=== PATIENT | female | born 1990 ===

== ENCOUNTER 2017-06-03 20:09 | Emergency (ER) | payer SELFPAY ==
[2017-06-03 20:13] VITALS: BMI 18.3
[2017-06-03 20:17] VITALS: TEMP 98.8
--- NOTE | 2017-06-03 21:08 | ED PDOC ---
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 She states that the patient possibly hit or pulled onto her back, she reports that she had only mild pain initially although over the past 1-2 hours she has had increasing back pain. Pain radiates down right leg greater than left. Denies head injury. Denies abdominal pain. Denies chest pain or shortness of breath. Denies prior history of back injuries. Denies urinary symptoms. Denies incontinence of urine or stool. Past Medical History - Infectious Disease Hx of Infectious Diseases: None - Tetanus Immunization Tetanus Immunization: Unknown - Past Medical History Past Medical History: No Previous - Cardiac Hx Cardiac Disorders: No Hx Hypertension: No - Pulmonary Hx Tuberculosis: No - Neurological HX Cerebrovascular Accident: No Hx Seizures: No - Hematological/Oncological Hx Cancer: No - Genitourinary/Gynecological Hx Sexually Transmitted Diseases: No - Psychiatric Hx Psychophysiologic Disorder: No Hx Anxiety: Yes Hx Depression: Yes Hx Emotional Abuse: No Hx Hallucinations: No Hx Panic Disorder: No Hx Post Traumatic Stress Disorder: No Hx Psychosis: No Hx Physical Abuse: No Hx Schizophrenia: No Hx Sexual Abuse: No Hx Substance Use: No - Past Surgical History Past Surgical History: No Previous - Anesthesia Hx Anesthesia: No Hx Anesthesia Reactions: No Hx Malignant Hyperthermia: No - Suicidal Assessment Feels Threatened In Home Enviroment: No Family/Social History Family/Social History: Unknown Family HX Smoking Status: Never Smoked Hx Alcohol Use: No Hx Substance Use: No Hx Substance Use Treatment: No Allergies/Home Meds Allergies/Adverse Reactions: Allergies shellfish derived Allergy (Verified 06/03/17 20:13) RASH Review of Systems - Review of Systems Constitutional: absent: Fevers Respiratory: absent: SOB Cardiovascular: absent: Chest Pain Gastrointestinal: absent: Abdominal Pain, Nausea, Vomiting Genitourinary Female: absent: Dysuria, Frequency Musculoskeletal: Back Pain. absent: Neck Pain, Joint Swelling Skin: absent: Rash Neurological: absent: Headache, Dizziness, Focal Weakness Endocrine: absent: Polyuria Hemo/Lymphatic: absent: Easy Bleeding Physical Exam Vital Signs Reviewed: Yes Vital Signs Temp Pulse Resp BP Pulse Ox 06/03/17 20:16 98.8 F 92 H 18 155/74 H 99 Temperature: Afebrile Appearance: Positive for: Uncomfortable Pain Distress: Moderate Mental Status: Positive for: Alert and Oriented X 3 - Systems Exam Head: Present: Atraumatic Pupils: Present: PERRL Mouth: Present: Moist Mucous Membranes Neck: Present: Normal Range of Motion, Trachea Midline. No: Meningeal Signs, MIDLINE TENDERNESS Respiratory/Chest: Present: Clear to Auscultation. No: Respiratory Distress, Tender to Palpation Cardiovascular: Present: Regular Rate and Rhythm Abdomen: Present: Other (no suprapubic pain). No: Tenderness Back: Present: Normal Inspection, Midline Tenderness, Paraspinal Tenderness, Pain with Leg Raise. No: CVA Tenderness, Decubitus Ulcer Upper Extremity: No: Cyanosis, Edema Lower Extremity: Present: NORMAL PULSES, Neurovascularly Intact. No: Edema, CALF TENDERNESS Neurological: Present: Speech Normal, Motor Func Grossly Intact, Normal Sensory Function, Normal Cerebellar Funct, Norm Deep Tendon Reflexes Skin: Present: Warm Psychiatric: Present: Alert, Normal Concentration Medical Decision Making ED Course and Treatment: 06/03/17 22:12 Patient on examination is found to have palpable lower back pain, but no neuro deficits, no saddle anesthesia, normal and intact reflexes, no incontinence, no abdominal pain. No bruises or soft tissue swelling noted. Imaging studies unremarkable for acute fracture. On re-exam, she states pain relieved after Toradol. I have discussed with her need for close re-evaluation, no heavy lifting. She is ambulatory with no discomfort and neuro intact upon discharge. - RAD Interpretation Radiology Orders: 06/03/17 20:34 LS SPINE AP/LAT [RAD] Stat - Medication Orders Current Medication Orders: Discontinued Medications Cyclobenzaprine HCl (Flexeril) 10 mg PO STAT STA Stop: 06/03/17 20:34 Last Admin: 06/03/17 21:23 Dose: 10 mg Ketorolac Tromethamine (Toradol) 30 mg IM STAT STA Stop: 06/03/17 20:34 Last Admin: 06/03/17 21:23 Dose: 30 mg Disposition/Present on Arrival - Present on Arrival Any Indicators Present on Arrival: No History of DVT/PE: No History of Uncontrolled Diabetes: No Urinary Catheter: No History of Decub. Ulcer: No History Surgical Site Infection Following: None - Disposition Have Diagnosis and Disposition been Completed?: Yes Diagnosis: Lumbar strain Disposition: HOME/ ROUTINE Disposition Time: 22:13 Patient Plan: Discharge Patient Problems: Current Active Problems Problem Status Onset Lumbar strain Acute Condition: GOOD Discharge Instructions (ExitCare): Acute Low Back Pain (ED), Back Pain (ED) Additional Instructions: Rest. No heavy lifting or strenuous activity. For any persistent pain or any urinary symptoms, any weakness, any numbness, any abdominal pain, any persistent or worsening of symptoms, get rechecked. If pain persists you must get re-evaluated by your physician in 2-3 days. Prescriptions: Cyclobenzaprine [Cyclobenzaprine HCl] 10 mg PO TID PRN #12 tab PRN Reason: Muscle Spasm Naproxen [Naprosyn Tab] 250 mg PO BID PRN #10 tab PRN Reason: Pain, Mild (1-3) Referrals: Shelly Bae DO [Primary Care Provider] - Follow up with primary Forms: WORK NOTE
[2017-06-03 23:00] VITALS: BP 137/68; PULSE 88; RESP 16; O2SAT 100
--- NOTE | 2017-06-04 08:46 | RAD ---
PROCEDURE: Radiographs of the Lumbar Spine. HISTORY: back pain COMPARISON: No prior. FINDINGS: BONES: Normal alignment. No listhesis. No fracture. DISC SPACES: Unremarkable. OTHER FINDINGS: None. IMPRESSION: Unremarkable radiographs of the lumbar spine.
== END 2017-06-03 22:30 | disposition home or self-care (01) ==
LOC: ED 20:09
DX: S39.012A Strain of muscle, fascia and tendon of lower back, initial encounter (principal); W01.0XXA Fall on same level from slipping, tripping and stumbling without subsequent striking against object, initial encounter; Y93.F9 Activity, other caregiving; Y92.89 Other specified places as the place of occurrence of the external cause; Y99.8 Other external cause status
CPT/HCPCS: 72100; 96372; 99282; J1885

== ENCOUNTER 2017-06-23 14:58 | Emergency (ER) | payer SELFPAY ==
[2017-06-23 14:59] VITALS: BMI 18.3
[2017-06-23 15:26] VITALS: RESP 18; TEMP 98.3; O2SAT 99
[2017-06-23] MEDS ORDERED: Sodium Chloride 0.9% 1,000 ML IV STA (15:33)
--- NOTE | 2017-06-23 16:06 | ED PDOC ---
Arrival/HPI - General Chief Complaint: Abdominal Pain Time Seen by Provider: 06/23/17 15:02 Historian: Patient - History of Present Illness Narrative History of Present Illness (Text): 06/23/17 16:04 26-year-old female presents today with left lower abdominal intermittent sharp pain and cramping that developed yesterday. Patient states she just found out 3 days ago that she was . Patient denies urinary symptoms. Denies vaginal bleeding. Denies vaginal discharge. Denies back pain. Denies nausea or vomiting. Patient states 3 days ago she took a test because she felt like her breasts were swollen. Patient denies dizziness or weakness. No chest pain or shortness of breath. No medications have been taken for pain at home. No other complaints. Time/Duration: Other (1 day) Symptom Onset: Gradual Symptom Course: Worsening Quality: Stabbing, Cramping Severity Level: 4 Past Medical History - Provider Review Nursing Documentation Reviewed: Yes - Travel History Have you recently traveled outside [place] w/in the past 3 mons?: No - Infectious Disease Hx of Infectious Diseases: None - Tetanus Immunization Tetanus Immunization: Unknown - Past Medical History Past Medical History: No Previous - Cardiac Hx Cardiac Disorders: No Hx Hypertension: No - Pulmonary Hx Tuberculosis: No - Neurological HX Cerebrovascular Accident: No Hx Seizures: No - Hematological/Oncological Hx Cancer: No - Genitourinary/Gynecological Hx Sexually Transmitted Diseases: No - Psychiatric Hx Psychophysiologic Disorder: No Hx Anxiety: Yes Hx Depression: Yes Hx Emotional Abuse: No Hx Hallucinations: No Hx Panic Disorder: No Hx Post Traumatic Stress Disorder: No Hx Psychosis: No Hx Physical Abuse: No Hx Schizophrenia: No Hx Sexual Abuse: No Hx Substance Use: No - Past Surgical History Past Surgical History: No Previous - Anesthesia Hx Anesthesia: No Hx Anesthesia Reactions: No Hx Malignant Hyperthermia: No - Suicidal Assessment Feels Threatened In Home Enviroment: No Family/Social History - Physician Review Nursing Documentation Reviewed: Yes Family/Social History: Unknown Family HX Smoking Status: Never Smoked Hx Alcohol Use: No Hx Substance Use: No Hx Substance Use Treatment: No Allergies/Home Meds Allergies/Adverse Reactions: Allergies shellfish derived Allergy (Verified 06/23/17 15:22) RASH Review of Systems - Review of Systems Constitutional: absent: Fatigue, Fevers Respiratory: absent: SOB, Cough Gastrointestinal: Abdominal Pain. absent: Constipation Genitourinary Female: absent: Dysuria, Frequency, Hematuria, Vaginal Bleeding, Vaginal Discharge Musculoskeletal: absent: Arthralgias, Back Pain, Neck Pain Skin: absent: Rash, Pruritis Neurological: absent: Headache, Dizziness Psychiatric: absent: Anxiety, Depression Physical Exam Vital Signs Reviewed: Yes Vital Signs Temp Pulse Resp BP Pulse Ox 06/23/17 18:51 71 18 118/71 99 06/23/17 17:33 79 18 121/75 99 06/23/17 15:24 98.3 F 86 18 118/77 99 Temperature: Afebrile Blood Pressure: Normal Pulse: Regular Respiratory Rate: Normal Appearance: Positive for: Well-Appearing, Non-Toxic, Comfortable Pain Distress: None Mental Status: Positive for: Alert and Oriented X 3 - Systems Exam Head: Present: Atraumatic Mouth: Present: Moist Mucous Membranes Neck: Present: Normal Range of Motion Respiratory/Chest: Present: Clear to Auscultation, Good Air Exchange. No: Respiratory Distress, Accessory Muscle Use Cardiovascular: Present: Regular Rate and Rhythm, Normal S1, S2. No: Murmurs Abdomen: Present: Tenderness (+ left lower pelvic tenderness.), Normal Bowel Sounds. No: Distention, Peritoneal Signs, Rebound, Guarding, McBurney's Point Tender Genitourinary/Pelvic Exam: Present: Normal External Genitalia, Cervical os Closed, Other (chaparoned by estefania; er emt). No: Vaginal Discharge, Vaginal Bleeding, Vaginal Lesions, Adenexal Tenderness, Adenexal Mass, Cervical Motion Tendernes, Odor Back: Present: Normal Inspection. No: CVA Tenderness, Paraspinal Tenderness Upper Extremity: Present: Normal Inspection Lower Extremity: Present: Normal Inspection Neurological: Present: GCS=15, Speech Normal Skin: Present: Warm, Dry, Normal Color. No: Rashes Psychiatric: Present: Alert, Oriented x 3 Medical Decision Making ED Course and Treatment: 06/23/17 16:06 Patient is nontoxic well appearing in no distress. Stable vital signs. Patient with positive test 3 days ago now with left lower pelvic pain. CBC: wnl CMP: wnl albumin;5.0 Beta hC TYPE AND SCREEN: A+ Urinalysis: + small leukocytes, few bacteria, + moderate blood Ultrasound: Indication: /pain Comparison: None available Technique: Transvaginal pelvic ultrasound Findings: Uterus measures approximately 9.1 x 4.4 x 6.0 cm. Anteverted. Cervix length measures approximately 3.5 cm. The gestational sac measures 0.9 cm, out of range for gestational age calculation. 1 mm yolk sac. The right ovary measures 4.1 x 1.8 x 3.2 cm. The left ovary measures 2.5 x 1.3 x 3.0 cm. Blood flow was demonstrated to both ovaries. Impression: Intrauterine gestational sac, out of range for gestational age calculation. No evidence of pole at this time. Correlate clinically and recommend interval follow-up as indicated. Discussed all the results the patient. advised f/u with the precision farming coordinator within the next 2 days. advised immediate return if symptoms worsen,persist or if new symptoms develop. Patient verbalizes understanding of discharge instructions and need for immediate followup. Impression: threatened , uti Tylenol every 4 hours as needed for pain Increase fluids vitamins daily macrobid twice daily x 10 days Followup with the information technology instructor within the next 2 days Return immediately if symptoms worsen persist or if new symptoms develop: High fevers, heavy bleeding, severe abdominal pain, vomiting, diarrhea, dizziness or weakness or any other concerning symptoms develop. Repeat beta hCG in 48 hours - Lab Interpretations Lab Results: 06/23/17 16:35 06/23/17 16:35 Lab Results 06/23/17 18:30: Blood Type Confirm A POSITIVE 06/23/17 16:35: WBC 7.8 D, RBC 4.48, Hgb 13.5, Hct 39.2, MCV 87.5, MCH 30.1, MCHC 34.4, RDW 13.4, Plt Count 269, MPV 10.0, Gran % 64.9, Lymph % (Auto) 24.4, [place] % (Auto) 8.6 H, Eos % (Auto) 1.8, Baso % (Auto) 0.3, Gran # 5.04, Lymph # 1.9, [place] # 0.7 H, Eos # 0.1, Baso # 0.02 06/23/17 16:35: Blood Type A POSITIVE, Antibody Screen Negative, BBK History Checked No verified bt 06/23/17 16:35: Beta HCG, Quant 57574.00 H 06/23/17 16:35: Sodium 144, Potassium 3.9, Chloride 104, Carbon Dioxide 25, Anion Gap 19, BUN 15, Creatinine 0.5, Est GFR ( Amer) > 60, Est GFR (Non- Af Amer) > 60, Random Glucose 82, Calcium 10.2, Total Bilirubin 0.4, AST 27, ALT 29, Alkaline Phosphatase 44, Total Protein 8.7 H, Albumin 5.0 H, Globulin 3.7, Albumin/Globulin Ratio 1.4, Lipase 110 06/23/17 16:00: Urine Color Yellow, Urine Appearance Sl cloudy, Urine pH 6.0, Ur Specific [place] 1.025, Urine Protein Negative, Urine Glucose (UA) Negative, Urine Ketones Negative, Urine Blood Moderate H, Urine Nitrate Negative, Urine Bilirubin Negative, Urine Urobilinogen 1.0 H, Ur Leukocyte Esterase Small H, Urine RBC 1 - 3, Urine WBC 2 - 5, Ur Epithelial Cells 4 - 5, Urine Bacteria Few , Urine HCG, Qual Positive - RAD Interpretation Radiology Orders: 06/23/17 15:33 TRANSVAGINAL [US] Stat - Medication Orders Current Medication Orders: Discontinued Medications Sodium Chloride (Sodium Chloride 0.9%) 1,000 mls @ 999 mls/hr IV .Q1H1M STA Stop: 06/23/17 16:33 Last Admin: 06/23/17 16:59 Dose: 999 mls/hr Disposition/Present on Arrival - Present on Arrival Any Indicators Present on Arrival: No History of DVT/PE: No History of Uncontrolled Diabetes: No Urinary Catheter: No History of Decub. Ulcer: No History Surgical Site Infection Following: None - Disposition Have Diagnosis and Disposition been Completed?: Yes Diagnosis: Threatened , Urinary tract infection Disposition: HOME/ ROUTINE Disposition Time: 17:58 Patient Plan: Discharge Condition: GOOD Discharge Instructions (ExitCare): Threatened Miscarriage (ED), Urinary Tract Infection in (ED) Additional Instructions: Tylenol every 4 hours as needed for pain nitrofurantoin; 1 tablet twice daily x 10 days Increase fluids vitamins daily Followup with the information technology instructor within the next 2 days Return immediately if symptoms worsen persist or if new symptoms develop: High fevers, heavy bleeding, severe abdominal pain, vomiting, diarrhea, dizziness or weakness or any other concerning symptoms develop. Repeat beta hCG in 48 hours Prescriptions: Nitrofurantoin Macrocrystals [Macrobid] 100 mg PO BID #20 cap Multivit/Folic Acid/I [ Plus] 1 tab PO DAILY #30 tab Referrals: Ronel Israel MD [Medical Doctor] - Follow up with primary Forms: [employer] (Amharic)
[2017-06-23 16:16] LABS: URINE BILIRUBIN NEGATIVE (NEGATIVE); URINE BLOOD MODERATE (NEGATIVE); URINE GLUCOSE (UA) NEGATIVE (NEGATIVE); URINE LEUKOCYTE ESTERASE SMALL Leu/uL (NEGATIVE); URINE NITRATE NEGATIVE (NEGATIVE); URINE PROTEIN NEGATIVE mg/dL (<30 mg/dL)
[2017-06-23 16:22] LABS: URINE APPEARANCE SL CLOUDY (CLEAR); URINE COLOR YELLOW (YELLOW)
[2017-06-23 16:24] LABS: HCG,QUALITATIVE URINE POSITIVE (NEGATIVE)
[2017-06-23 16:36] LABS: URINE BACTERIA FEW (NEG)
[2017-06-23 16:51] LABS: BASO # 0.02 K/mm3 (0.0-2.0); BASO % 0.3 % (0.0-3.0); EOS # 0.1 (0.0-0.7); EOS % 1.8 % (1.5-5.0); GRAN # 5.04 (1.4-6.5); GRAN % 64.9 % (50.0-68.0); HEMOGLOBIN 13.5 gm/dL (12.0-16.0); LYMPH # 1.9 (1.2-3.4); LYMPH % 24.4 % (22.0-35.0); MEAN CELL VOLUME 87.5 fL (80.0-105.0); MEAN CORPUSCULAR HEMOGLOBIN 30.1 pg (25.0-35.0); MEAN CORPUSCULAR HGB CONC 34.4 g/dl (31.0-37.0); MONO # 0.7 (0.1-0.6); MONO % 8.6 % (1.0-6.0); PLATELET COUNT 269 10^3/uL (120.0-450.0); RBC 4.48 10^6/uL (3.5-6.1); RED CELL DISTRIBUTION WIDTH 13.4 % (11.5-14.5); WHITE BLOOD COUNT 7.8 10^3/ul (4.5-11.0)
[2017-06-23 17:00] LABS: ALB/GLOB RATIO 1.4 (1.1-1.8); ALT/SGPT 29 U/L (7-56); AST/SGOT 27 U/L (15-39); BLOOD UREA NITROGEN 15 mg/dL (7-21); CALCIUM 10.2 mg/dL (8.4-10.5); GFR AFRICAN-AMERICAN > 60; GFR NON-AFRICAN AMERICAN > 60; LIPASE 110 U/L (23-300)
--- NOTE | 2017-06-23 17:01 | US ---
Indication: /pain Comparison: None available Technique: Transvaginal pelvic ultrasound Findings: Uterus measures approximately 9.1 x 4.4 x 6.0 cm. Anteverted. Cervix length measures approximately 3.5 cm. The gestational sac measures 0.9 cm, out of range for gestational age calculation. 1 mm yolk sac. The right ovary measures 4.1 x 1.8 x 3.2 cm. The left ovary measures 2.5 x 1.3 x 3.0 cm. Blood flow was demonstrated to both ovaries. Impression: Intrauterine gestational sac, out of range for gestational age calculation. No evidence of pole at this time. Correlate clinically and recommend interval follow-up as indicated.
[2017-06-23 18:52] VITALS: BP 118/71; PULSE 71
== END 2017-06-23 18:58 | disposition home or self-care (01) ==
LOC: ED 14:58
DX: O23.40 Unspecified infection of urinary tract in pregnancy, unspecified trimester (principal); O20.0 Threatened abortion
CPT/HCPCS: 76830; 80053; 81001; 83690; 84702; 84703; 85025; 86850; 86900; 87086; 99283; J7040

== ENCOUNTER 2017-08-01 12:18 | Emergency (ER) | payer MEDICAID ==
[2017-08-01 12:22] VITALS: BMI 19.1
[2017-08-01 12:26] VITALS: RESP 18; TEMP 98.6; O2SAT 98
[2017-08-01 12:47] LABS: URINE BILIRUBIN NEGATIVE (NEGATIVE); URINE BLOOD LARGE (NEGATIVE); URINE GLUCOSE (UA) NEGATIVE (NEGATIVE); URINE KETONE NEGATIVE (NEGATIVE); URINE LEUKOCYTE ESTERASE SMALL Leu/uL (NEGATIVE); URINE PROTEIN NEGATIVE mg/dL (<30 mg/dL); URINE UROBILINOGEN 0.2 E.U./dL (<1 E.U./dL)
[2017-08-01 12:47] LABS: BASO # 0.02 K/mm3 (0.0-2.0); BASO % 0.2 % (0.0-3.0); EOS # 0.2 (0.0-0.7); EOS % 1.7 % (1.5-5.0); GRAN # 6.93 (1.4-6.5); GRAN % 76.3 % (50.0-68.0); HEMATOCRIT 35.5 % (36.0-48.0); LYMPH # 1.2 (1.2-3.4); LYMPH % 13.7 % (22.0-35.0); MEAN CELL VOLUME 86.6 fl (80.0-105.0); MEAN CORPUSCULAR HEMOGLOBIN 30.5 pg (25.0-35.0); MEAN CORPUSCULAR HGB CONC 35.2 g/dl (31.0-37.0); MONO # 0.7 (0.1-0.6); MONO % 8.1 % (1.0-6.0); RED CELL DISTRIBUTION WIDTH 13.6 % (11.5-14.5); WHITE BLOOD COUNT 9.1 10^3/ul (4.5-11.0)
[2017-08-01 12:49] LABS: URINE APPEARANCE CLEAR (CLEAR); URINE COLOR YELLOW (YELLOW)
--- NOTE | 2017-08-01 12:53 | ED PDOC ---
Arrival/HPI - General Chief Complaint: Female Genitourinary Time Seen by Provider: 08/01/17 12:25 Historian: Patient - History of Present Illness Narrative History of Present Illness (Text): 08/01/17 14:27 27-year-old female 11 weeks presents today with concerns for vaginal bleeding that started around 10 PM last night. Patient states she's noticed a small amount of blood every time that she goes to the bathroom. She denies chest pain or shortness breath. Denies abdominal pain. Denies fevers or chills. Denies any urinary symptoms. Denies dizziness or weakness. Patient states she has been unable to follow up with her service engine repairer due to lack of insurance. No other complaints Time/Duration: Other (last night 10am) Symptom Course: Improving Past Medical History - Provider Review Nursing Documentation Reviewed: Yes - Travel History Have you recently traveled outside [place] w/in the past 3 mons?: No - Infectious Disease Hx of Infectious Diseases: None - Tetanus Immunization Tetanus Immunization: Unknown - Past Medical History Past Medical History: No Previous - Cardiac Hx Cardiac Disorders: No Hx Hypertension: No - Pulmonary Hx Tuberculosis: No - Neurological HX Cerebrovascular Accident: No Hx Seizures: No - Hematological/Oncological Hx Cancer: No - Genitourinary/Gynecological Hx Sexually Transmitted Diseases: No - Psychiatric Hx Psychophysiologic Disorder: No Hx Anxiety: Yes Hx Depression: Yes Hx Emotional Abuse: No Hx Hallucinations: No Hx Panic Disorder: No Hx Post Traumatic Stress Disorder: No Hx Psychosis: No Hx Physical Abuse: No Hx Schizophrenia: No Hx Sexual Abuse: No Hx Substance Use: No - Past Surgical History Past Surgical History: No Previous - Anesthesia Hx Anesthesia: No Hx Anesthesia Reactions: No Hx Malignant Hyperthermia: No - Suicidal Assessment Feels Threatened In Home Enviroment: No Family/Social History - Physician Review Nursing Documentation Reviewed: Yes Family/Social History: Unknown Family HX Smoking Status: Never Smoked Hx Alcohol Use: No Hx Substance Use: No Hx Substance Use Treatment: No Allergies/Home Meds Allergies/Adverse Reactions: Allergies shellfish derived Allergy (Verified 06/23/17 15:22) RASH Review of Systems - Review of Systems Constitutional: absent: Fatigue, Fevers Respiratory: absent: SOB, Cough Cardiovascular: absent: Chest Pain, Palpitations Gastrointestinal: absent: Abdominal Pain, Diarrhea, Nausea, Vomiting Genitourinary Female: Vaginal Bleeding. absent: Dysuria, Frequency, Hematuria, Vaginal Discharge Musculoskeletal: absent: Arthralgias, Back Pain, Neck Pain Skin: absent: Rash, Pruritis Neurological: absent: Headache, Dizziness Psychiatric: absent: Anxiety, Depression Physical Exam Vital Signs Reviewed: Yes Vital Signs Temp Pulse Resp BP Pulse Ox 08/01/17 13:50 94 H 18 134/71 98 08/01/17 12:25 98.6 F 102 H 18 136/76 98 Temperature: Afebrile Blood Pressure: Normal Pulse: Tachycardic Respiratory Rate: Normal Appearance: Positive for: Well-Appearing, Non-Toxic, Comfortable Pain Distress: None Mental Status: Positive for: Alert and Oriented X 3 - Systems Exam Head: Present: Atraumatic Mouth: Present: Moist Mucous Membranes Neck: Present: Normal Range of Motion Respiratory/Chest: Present: Clear to Auscultation, Good Air Exchange. No: Respiratory Distress, Accessory Muscle Use Cardiovascular: Present: Regular Rate and Rhythm, Peripheal Pulses Present Abdomen: Present: Normal Bowel Sounds. No: Tenderness, Distention, Peritoneal Signs, Rebound, Guarding Genitourinary/Pelvic Exam: Present: Normal External Genitalia, Vaginal Bleeding (slight brown discharge noted), Cervical os Closed, Other (chaparoned by Emmanuelle KING). No: Vaginal Discharge, Vaginal Lesions, Adenexal Tenderness, Adenexal Mass , Cervical Motion Tendernes, Odor Back: Present: Normal Inspection. No: CVA Tenderness, Midline Tenderness, Paraspinal Tenderness Lower Extremity: Present: Normal Inspection. No: Edema Neurological: Present: GCS=15, Speech Normal Skin: Present: Warm, Dry Psychiatric: Present: Alert, Oriented x 3 Medical Decision Making ED Course and Treatment: 08/01/17 14:30 Patient is nontoxic well appearing in no distress. vital signs are stable. CBC: wnl CMP: wnl Beta hC TYPE AND SCREEN: A+ Urinalysis: + blood, small leukocytes, rare bacteria. pt without urinary symptoms. rare bacteria; will sent urine culture. Ultrasound: Findings: The uterus measures approximately 10.7 x 6.8 x 9.2 cm. Cervix length measures approximately 3.4 cm. There is a single intrauterine fetus present. The gestational sac measures 4.9 cm and is compatible with a gestational age of 10 weeks 4 days. The crown-rump length measures 3.7 cm and is compatible with a gestational age of 10 weeks 4 days. There is heart motion which measured 160.6 BPM. The right ovary measures 2.9 x 1.9 x 1.7 cm. The left ovary is not visualized. Blood flow is demonstrated to the right ovary. Impression: Live single intrauterine with estimated gestational age 10 weeks 4 days. heart rate 160.6 bpm. Advise an anomaly screen at 16-18 weeks gestational age The left ovary is not visualized. Discussed all the results the patient. advised f/u with the make up editor within the next 2 days. advised immediate return if symptoms worsen,persist or if new symptoms develop. Impression: threatened Tylenol every 4 hours as needed for pain Increase fluids Followup with the business services assistant within the next 2 days Return immediately if symptoms worsen persist or if new symptoms develop: High fevers, heavy bleeding, severe abdominal pain, vomiting, diarrhea, dizziness or weakness or any other concerning symptoms develop. - Lab Interpretations Lab Results: 08/01/17 12:41 08/01/17 12:41 Lab Results 08/01/17 12:48: Blood Type A POSITIVE, Antibody Screen Negative, BBK History Checked Patient has bt 08/01/17 12:41: WBC 9.1, RBC 4.10, Hgb 12.5, Hct 35.5 L, MCV 86.6, MCH 30.5, MCHC 35.2, RDW 13.6, Plt Count 242, MPV 10.0, Gran % 76.3 H, Lymph % (Auto) 13.7 L, [place] % (Auto) 8.1 H, Eos % (Auto) 1.7, Baso % (Auto) 0.2, Gran # 6.93 H , Lymph # 1.2, [place] # 0.7 H, Eos # 0.2, Baso # 0.02 08/01/17 12:41: Beta HCG, Quant 21077.00 H 08/01/17 12:41: Sodium 138, Potassium 3.9, Chloride 105, Carbon Dioxide 23, Anion Gap 14, BUN 9, Creatinine 0.5, Est GFR ( Amer) > 60, Est GFR (Non- Af Amer) > 60, Random Glucose 83, Calcium 9.6, Total Bilirubin 0.4, AST 29, ALT 33, Alkaline Phosphatase 46, Total Protein 7.7, Albumin 4.4, Globulin 3.3, Albumin/Globulin Ratio 1.3 08/01/17 12:39: Urine Color Yellow, Urine Appearance Clear, Urine pH 6.0, Ur Specific [place] 1.015, Urine Protein Negative, Urine Glucose (UA) Negative, Urine Ketones Negative, Urine Blood Large H, Urine Nitrate Negative, Urine Bilirubin Negative, Urine Urobilinogen 0.2, Ur Leukocyte Esterase Small H, Urine RBC 5 - 10, Urine WBC 2 - 5, Ur Epithelial Cells 4 - 5, Urine Bacteria Rare - RAD Interpretation Radiology Orders: 08/01/17 12:26 TRANSVAGINAL [US] Stat 08/01/17 12:51 OB TRANSVAGINAL [US] Stat Disposition/Present on Arrival - Present on Arrival Any Indicators Present on Arrival: No History of DVT/PE: No History of Uncontrolled Diabetes: No Urinary Catheter: No History of Decub. Ulcer: No History Surgical Site Infection Following: None - Disposition Have Diagnosis and Disposition been Completed?: Yes Diagnosis: Threatened Disposition: HOME/ ROUTINE Disposition Time: 14:32 Patient Plan: Discharge Condition: GOOD Discharge Instructions (ExitCare): Threatened Miscarriage (ED) Additional Instructions: Tylenol every 4 hours as needed for pain Increase fluids Followup with the business services assistant within the next 2 days Return immediately if symptoms worsen persist or if new symptoms develop: High fevers, heavy bleeding, severe abdominal pain, vomiting, diarrhea, dizziness or weakness or any other concerning symptoms develop. Prescriptions: Multivit/Folic Acid/I [ Plus] 1 tab PO DAILY #30 tab Referrals: Shelly Bae DO [Primary Care Provider] - Follow up with primary Danita Franco MD [Staff Provider] - [facility] - Follow up with primary Forms: [employer] (Burmese)
[2017-08-01 13:02] LABS: URINE BACTERIA RARE (NEG)
[2017-08-01 13:06] LABS: ALB/GLOB RATIO 1.3 (1.1-1.8); ALKALINE PHOSPHATASE 46 U/L (38-126); ALT/SGPT 33 U/L (7-56); AST/SGOT 29 U/L (14-36); BILIRUBIN,TOTAL 0.4 mg/dL (0.2-1.3); BLOOD UREA NITROGEN 9 mg/dL (7-21); CALCIUM 9.6 mg/dL (8.4-10.5); CARBON DIOXIDE 23 mmol/L (21-33); CHLORIDE 105 mmol/L (98-107); GFR AFRICAN-AMERICAN > 60; GLUCOSE,RANDOM 83 mg/dL (70-110); POTASSIUM 3.9 mmol/L (3.6-5.0); SODIUM 138 mmol/L (132-148); TOTAL PROTEIN 7.7 g/dL (5.8-8.3)
--- NOTE | 2017-08-01 13:24 | US ---
Indication: Vaginal bleeding Comparison: Transvaginal pelvic ultrasound performed 06/23/17 Technique: Transvaginal pelvic ultrasound. Findings: The uterus measures approximately 10.7 x 6.8 x 9.2 cm. Cervix length measures approximately 3.4 cm. There is a single intrauterine fetus present. The gestational sac measures 4.9 cm and is compatible with a gestational age of 10 weeks 4 days. The crown-rump length measures 3.7 cm and is compatible with a gestational age of 10 weeks 4 days. There is heart motion which measured 160.6 BPM. The right ovary measures 2.9 x 1.9 x 1.7 cm. The left ovary is not visualized. Blood flow is demonstrated to the right ovary. Impression: Live single intrauterine with estimated gestational age 10 weeks 4 days. heart rate 160.6 bpm. Advise an anomaly screen at 16-18 weeks gestational age The left ovary is not visualized.
[2017-08-01 13:51] VITALS: BP 134/71; PULSE 94
== END 2017-08-01 14:49 | disposition home or self-care (01) ==
LOC: ED 12:18
DX: O20.0 Threatened abortion (principal); Z3A.11 11 weeks gestation of pregnancy